=== PATIENT | female | born 1960 | race Caucasian/White ===

== ENCOUNTER 2018-01-03 09:13 | Emergency (ER) | payer BC ==
[~2018-01-03] VITALS: Ht 162.6 cm; Wt 120.6 kg
[~2018-01-03 09:13] MED LIST: MICARDIS HCT1 TABLE2 PO; VICODIN 5-3001 EACH PO
[2018-01-03 09:19] VITALS: BP 131/87
[2018-01-03] MEDS ORDERED: MOBIC7.5 MG PO (10:46)
[2018-01-03] MEDS ORDERED: ULTRAM50 MG PO (10:46)
== END 2018-01-03 11:05 | disposition home or self-care (01) ==
LOC: EME 09:13
DX: M11.232 Other chondrocalcinosis, left wrist (principal); E78.5 Hyperlipidemia, unspecified; I10 Essential (primary) hypertension
CPT/HCPCS: 73110; 99281; 99284